=== PATIENT | female | born 1990 | race Two or more races ===

== ENCOUNTER 2016-04-21 15:52 | Inpatient (IN) | payer OTHER ==
[2016-04-21 18:26] VITALS: BMI 29.5
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
[2016-04-21] MEDS ORDERED: chlordiazePOXIDE HCL 25 MG CAPSULE PO ONE (19:29)
[2016-04-21] MEDS ORDERED: guaiFENesin/D-METHORPHAN HB 10 ML UNIT-DOSE CUPS PO PRN (19:29)
[2016-04-21] MEDS ORDERED: MAGNESIUM CITRATE 300 ML BOTTLE PO PRN (19:29)
[2016-04-21] MEDS ORDERED: chlordiazePOXIDE HCL 25 MG CAPSULE PO PRN (19:29)
[2016-04-21] MEDS ORDERED: hydrOXYzine PAMOATE 50 MG CAPSULE (FP) PO PRN (19:29)
[2016-04-21] MEDS ORDERED: MENTHOL/PHENOL 1 EACH UD MM PRN (19:29)
[2016-04-21] MEDS ORDERED: MAGNESIUM HYDROX 2400MG/30ML ORAL SUSPENSION 30 ML CUP PO PRN (19:29)
[2016-04-21] MEDS ORDERED: NICOTINE POLACRILEX 4 MG GUM BC PRN (19:29)
[2016-04-21] MEDS ORDERED: LOPERAMIDE HCL 2 MG CAPSULE PO PRN (19:29)
[2016-04-21] MEDS ORDERED: P-EPHED 60MG/TRIPROLIDI 2.5MG TABLET PO PRN (19:29)
[2016-04-21] MEDS ORDERED: MAG HYDROX/AL HYDROX/SIMETH 30 ML UNIT-DOSE CUP PO PRN (19:29)
[2016-04-21] MEDS ORDERED: diphenhydrAMINE HCL 50 MG CAPSULE PO PRN (19:29)
[2016-04-21] MEDS ORDERED: IBUPROFEN 400 MG TABLET (FP) PO PRN (19:29)
[2016-04-21] MEDS ORDERED: ACETAMINOPHEN 325 MG TABLET (FP) PO PRN (19:29)
[2016-04-21] MEDS ORDERED: ALBUTEROL SO4 6.7 GM HFA INHALER IH PRN (19:31)
[2016-04-21 22:58] LABS: URINE APPEARANCE SLCLOUDY; URINE BILIRUBIN NEGATIVE (NEGATIVE); URINE BLOOD NEGATIVE (NEGATIVE); URINE COLOR YELLOW; URINE GLUCOSE (UA) NEGATIVE (NEGATIVE); URINE KETONE NEGATIVE (NEGATIVE); URINE NITRITE NEGATIVE (NEGATIVE); URINE PROTEIN NEGATIVE (NEGATIVE); URINE UROBILINOGEN NEGATIVE E.U./dl (0.2-1.0)
[2016-04-21 22:59] LABS: URINE LEUK ESTERASE 2+ (NEGATIVE)
[2016-04-21 23:02] LABS: URINE BACTERIA RARE /hpf (NONE SEEN); URINE MUCUS FEW; URINE RBC 5 /hpf (0-3); URINE WBC 22 /hpf (3-5)
[2016-04-21] MEDS: chlordiazePOXIDE HCL 25 MG CAPSULE PO SCH (23:14)
[2016-04-21] MEDS: THIAMINE HCL 100 MG TABLET (FP) PO SCH (23:15)
[2016-04-22] MEDS: chlordiazePOXIDE HCL 25 MG CAPSULE PO SCH ×4 (05:45→22:43)
--- NOTE | 2016-04-22 07:40 | CONSULT ---
[facility] Psychiatric Consult - Data Date of interview: 04/22/16 Admission source: [facility] Identifying data: This is 26 years old female with no psychiatric hospitalization history intoxicated with: Cocaine, Cannabis, Alcohol, Nicotine Substance Abuse History: Smoking Cessation. Smoking history: Current every day smoker. Have you smoked in the past 12 months: Yes. Aproximately how many cigarettes per day: 20. Cigars Per Day: 0. Hx Chewing Tobacco Use: No. Initiated information on smoking cessation: Yes. 'Breaking Loose' booklet given : 04/21/16. - Substance & Tx. History. Hx Alcohol Use: Yes. Hx Substance Use : Yes. Substance Use Type: Alcohol, Cocaine, Marijuana. Hx Substance Use Treatment: Yes. - Substances Abused. Alcohol. Route: Oral. Frequency: Daily. Amount used: vodka 1 pint, beer 2 cans of 40oz. Age of first use: 16. Date of Last Use: 04/21/16. Cocaine. Route: Inhalation. Frequency: Daily. Amount used: 1 gram. Age of first use: 16. Date of Last Use: 04/20/16. Marijuana/Hashish. Route: Oral. Frequency: Daily. Amount used: OZ. Age of first use: 16. Date of Last Use: 04/21/16 Medical History: Asthma Psychiatric History: Denies Physical/Sexual Abuse/Trauma History: Denies Additional Comment: Observation. Detox Unit Care Protocol Mental Status Exam - Mental Status Exam Alert and Oriented to: Person Cognitive Function: Fair Patient Appearance: Unkempt Mood: Sad Affect: Flat Patient Behavior: Sedated Speech Pattern: Delayed Voice Loudness: Mildly Soft/Quiet Thought Process: Circumstantial Thought Disorder: Being Controlled Hallucinations: Denies Suicidal Ideation: Denies Homicidal Ideation: Denies Insight/Judgement: Fair Sleep: Difficulty falling asleep Appetite: Fair Muscle strength/Tone: Rigidity Gait/Station: Shuffling Additional Comments: Observation. Detox Unit Care Protocol Psychiatric Findings - Problem List ([place] 1, 2,3) (1) Alcohol dependence with uncomplicated withdrawal Current Visit: Yes Status: Acute (2) Nicotine dependence Current Visit: Yes Status: Acute Qualifiers: Nicotine product type: cigarettes Substance use status: in withdrawal Qualified Code(s): F17.213 - Nicotine dependence, cigarettes, with withdrawal (3) Cocaine dependence Current Visit: Yes Status: Acute (4) Cannabis dependence Current Visit: Yes Status: Acute - Initial Treatment Plan Initial Treatment Plan: Observation. Detox Unit Care Protocol
[2016-04-22 09:58] LABS: MEAN CELL VOLUME 96.7 fl (80-96); MEAN PLT VOLUME 9.8 fl (7.5-11.1); PLATELET COUNT 236 K/MM3 (134-434); RDW 14.6 % (11.6-15.6); WHITE BLOOD COUNT 6.6 K/mm3 (4.0-10.0)
[2016-04-22 10:06] LABS: ALBUMIN 3.5 g/dl (3.4-5.0); ALK PHOS 81 U/L (45-117); ANION GAP 9 (8-16); BILIRUBIN,TOTAL 0.4 mg/dL (0.2-1.0); CALCIUM 8.5 mg/dL (8.5-10.1); CO2 27 mmol/L (21-32); CREATININE 0.7 mg/dL (0.55-1.02); GLUCOSE,RANDOM 91 mg/dL (74-106); SGOT/AST 33 U/L (15-37); SGPT/ALT 44 U/L (12-78); TOT PROT 6.5 g/dl (6.4-8.2)
[2016-04-22] MEDS: NICOTINE 21 MG/24 HOURS TOPICAL PATCH TD SCH (10:40)
[2016-04-22] MEDS: PRENATAL VITAMINS W/ FOLIC ACID TABLET (FP) PO SCH (10:41)
[2016-04-22 11:06] LABS: HIV 1 & 2 AB NEGATIVE; HIV 1 AGp24 NEGATIVE
[2016-04-22] MEDS ORDERED: INFLUENZA VACCINE 45 MCG/0.5 ML (MDV 16-17) IM ONE (12:00)
--- NOTE | 2016-04-22 12:06 | PN ---
S CIWA - CIWA Score Nausea/Vomitin Muscle Tremors: 2 Anxiety: 3 Agitation: 3 Paroxysmal Sweats: 3 Orientation: 0-Oriented Tacttile Disturbances: 1-Very Mild Itch/Numbness Auditory Disturbances: 0-None Visual Disturbances: 0-None Headache: 0-None Present CIWA-Ar Total Score: 14 S Progress Note (SOAP) Subjective: interrupted sleep, sweats, shakes Vital Signs Temperature 98.1 F 04/22/16 10:19 Pulse Rate 78 04/22/16 10:19 Respiratory Rate 18 04/22/16 10:19 Blood Pressure 121/66 04/22/16 10:19 O2 Sat by Pulse Oximetry (%) Laboratory Tests 04/21/16 04/22/16 04/22/16 22:48 06:30 07:00 WBC 6.6 RBC 3.88 Hgb 12.4 Hct 37.6 MCV 96.7 H MCHC 33.0 RDW 14.6 Plt Count 236 MPV 9.8 Sodium Potassium Chloride Carbon Dioxide Anion Gap BUN Creatinine Creat Clearance w eGFR Random Glucose Calcium Total Bilirubin AST ALT Alkaline Phosphatase Total Protein Albumin Urine Color Yellow Urine Appearance Slcloudy Urine pH 6.0 Ur Specific [place] 1.019 Urine Protein Negative Urine Glucose (UA) Negative Urine Ketones Negative Urine Blood Negative Urine Nitrite Negative Urine Bilirubin Negative Urine Urobilinogen Negative Ur Leukocyte Esterase 2+ H Urine RBC 5 Urine WBC 22 Ur Epithelial Cells Moderate Urine Bacteria Rare Urine Mucus Few HIV 1&2 Antibody Screen Negative HIV P24 Antigen Negative 04/22/16 07:00 WBC RBC Hgb Hct MCV MCHC RDW Plt Count MPV Sodium 143 Potassium 3.8 Chloride 107 Carbon Dioxide 27 Anion Gap 9 BUN 9 Creatinine 0.7 Creat Clearance w eGFR > 60 Random Glucose 91 Calcium 8.5 Total Bilirubin 0.4 AST 33 ALT 44 Alkaline Phosphatase 81 Total Protein 6.5 Albumin 3.5 Urine Color Urine Appearance Urine pH Ur Specific [place] Urine Protein Urine Glucose (UA) Urine Ketones Urine Blood Urine Nitrite Urine Bilirubin Urine Urobilinogen Ur Leukocyte Esterase Urine RBC Urine WBC Ur Epithelial Cells Urine Bacteria Urine Mucus HIV 1&2 Antibody Screen HIV P24 Antigen pt aox3 in nad lying in bed Objective: 04/22/16 12:06 Vital Signs Temperature 98.1 F 04/22/16 10:19 Pulse Rate 78 04/22/16 10:19 Respiratory Rate 18 04/22/16 10:19 Blood Pressure 121/66 04/22/16 10:19 O2 Sat by Pulse Oximetry (%) Laboratory Tests 04/21/16 04/22/16 04/22/16 22:48 06:30 07:00 WBC 6.6 RBC 3.88 Hgb 12.4 Hct 37.6 MCV 96.7 H MCHC 33.0 RDW 14.6 Plt Count 236 MPV 9.8 Sodium Potassium Chloride Carbon Dioxide Anion Gap BUN Creatinine Creat Clearance w eGFR Random Glucose Calcium Total Bilirubin AST ALT Alkaline Phosphatase Total Protein Albumin Urine Color Yellow Urine Appearance Slcloudy Urine pH 6.0 Ur Specific [place] 1.019 Urine Protein Negative Urine Glucose (UA) Negative Urine Ketones Negative Urine Blood Negative Urine Nitrite Negative Urine Bilirubin Negative Urine Urobilinogen Negative Ur Leukocyte Esterase 2+ H Urine RBC 5 Urine WBC 22 Ur Epithelial Cells Moderate Urine Bacteria Rare Urine Mucus Few HIV 1&2 Antibody Screen Negative HIV P24 Antigen Negative 04/22/16 07:00 WBC RBC Hgb Hct MCV MCHC RDW Plt Count MPV Sodium 143 Potassium 3.8 Chloride 107 Carbon Dioxide 27 Anion Gap 9 BUN 9 Creatinine 0.7 Creat Clearance w eGFR > 60 Random Glucose 91 Calcium 8.5 Total Bilirubin 0.4 AST 33 ALT 44 Alkaline Phosphatase 81 Total Protein 6.5 Albumin 3.5 Urine Color Urine Appearance Urine pH Ur Specific [place] Urine Protein Urine Glucose (UA) Urine Ketones Urine Blood Urine Nitrite Urine Bilirubin Urine Urobilinogen Ur Leukocyte Esterase Urine RBC Urine WBC Ur Epithelial Cells Urine Bacteria Urine Mucus HIV 1&2 Antibody Screen HIV P24 Antigen 04/22/16 12:08 Assessment: 04/22/16 12:08 withdrawal sx's Plan: cont detox increease fluids
--- NOTE | 2016-04-22 12:51 | EKG ---
Test Reason : Blood Pressure : / mmHG Vent. Rate : 092 BPM Atrial Rate : 092 BPM P-R Int : 160 ms QRS Dur : 090 ms QT Int : 346 ms P-R-T Axes : 063 004 038 degrees QTc Int : 427 ms NORMAL SINUS RHYTHM MINIMAL VOLTAGE CRITERIA FOR LVH, MAY BE NORMAL VARIANT BORDERLINE ECG NO PREVIOUS ECGS AVAILABLE Confirmed by DAVID HOPKINS MD ([id number]) on 04/22/2016 12:51:37 PM Referred By: Confirmed By:DAVID HOPKINS MD
[2016-04-22] MEDS: THIAMINE HCL 100 MG TABLET (FP) PO SCH (22:43)
[2016-04-23 02:13] LABS: URINE APPEARANCE CLEAR; URINE BILIRUBIN NEGATIVE (NEGATIVE); URINE COLOR YELLOW; URINE GLUCOSE (UA) NEGATIVE (NEGATIVE); URINE KETONE NEGATIVE (NEGATIVE); URINE LEUK ESTERASE NEGATIVE (NEGATIVE); URINE NITRITE NEGATIVE (NEGATIVE); URINE PROTEIN NEGATIVE (NEGATIVE); URINE UROBILINOGEN NEGATIVE E.U./dl (0.2-1.0)
[2016-04-23 02:29] LABS: URINE BLOOD 2+ (NEGATIVE)
[2016-04-23 03:12] LABS: URINE MUCUS RARE; URINE RBC 67 /hpf (0-3); URINE WBC 10 /hpf (3-5)
[2016-04-23] MEDS: chlordiazePOXIDE HCL 25 MG CAPSULE PO SCH ×3 (05:29→17:52)
[2016-04-23] MEDS: PRENATAL VITAMINS W/ FOLIC ACID TABLET (FP) PO SCH (10:42)
[2016-04-23] MEDS: NICOTINE 21 MG/24 HOURS TOPICAL PATCH TD SCH (10:42)
--- NOTE | 2016-04-23 10:51 | PN ---
[facility] CIWA - CIWA Score Nausea/Vomitin-No Nausea/No Vomiting Muscle Tremors: 4-Moderate,w/Arms Extend Anxiety: 3 Agitation: 3 Paroxysmal Sweats: 3 Orientation: 0-Oriented Tacttile Disturbances: 0-None Auditory Disturbances: 0-None Visual Disturbances: 0-None Headache: 0-None Present CIWA-Ar Total Score: 13 S Progress Note (SOAP) Subjective: sweats shakes headache body aches interrupted sleep Objective: 04/23/16 10:45 Vital Signs Temperature 98.1 F 04/23/16 09:50 Pulse Rate 83 04/23/16 09:50 Respiratory Rate 20 04/23/16 09:50 Blood Pressure 127/72 04/23/16 09:50 O2 Sat by Pulse Oximetry (%) Laboratory Tests 04/21/16 04/22/16 04/22/16 22:48 06:30 07:00 WBC 6.6 RBC 3.88 Hgb 12.4 Hct 37.6 MCV 96.7 H MCHC 33.0 RDW 14.6 Plt Count 236 MPV 9.8 Sodium Potassium Chloride Carbon Dioxide Anion Gap BUN Creatinine Creat Clearance w eGFR Random Glucose Calcium Total Bilirubin AST ALT Alkaline Phosphatase Total Protein Albumin Urine Color Yellow Urine Appearance Slcloudy Urine pH 6.0 Ur Specific [place] 1.019 Urine Protein Negative Urine Glucose (UA) Negative Urine Ketones Negative Urine Blood Negative Urine Nitrite Negative Urine Bilirubin Negative Urine Urobilinogen Negative Ur Leukocyte Esterase 2+ H Urine RBC 5 Urine WBC 22 Ur Epithelial Cells Moderate Urine Bacteria Rare Urine Mucus Few RPR Titer HIV 1&2 Antibody Screen Negative HIV P24 Antigen Negative 04/22/16 04/22/16 04/23/16 07:00 07:00 01:48 WBC RBC Hgb Hct MCV MCHC RDW Plt Count MPV Sodium 143 Potassium 3.8 Chloride 107 Carbon Dioxide 27 Anion Gap 9 BUN 9 Creatinine 0.7 Creat Clearance w eGFR > 60 Random Glucose 91 Calcium 8.5 Total Bilirubin 0.4 AST 33 ALT 44 Alkaline Phosphatase 81 Total Protein 6.5 Albumin 3.5 Urine Color Yellow Urine Appearance Clear Urine pH 7.0 Ur Specific [place] 1.027 Urine Protein Negative Urine Glucose (UA) Negative Urine Ketones Negative Urine Blood 2+ H Urine Nitrite Negative Urine Bilirubin Negative Urine Urobilinogen Negative Ur Leukocyte Esterase Negative Urine RBC 67 Urine WBC 10 Ur Epithelial Cells Rare Urine Bacteria Urine Mucus Rare RPR Titer Nonreactive HIV 1&2 Antibody Screen HIV P24 Antigen awake/alert ambulating no acute distress Assessment: 04/23/16 10:45 withdrawal sx Plan: continue detox increase fluids ravinder sl
[2016-04-23] MEDS ORDERED: ONDANSETRON *ODT* 4 MG TABLET SL PRN (10:52)
[2016-04-23] MEDS: chlordiazePOXIDE 5 MG CAPSULE PO SCH (22:24)
[2016-04-23] MEDS: THIAMINE HCL 100 MG TABLET (FP) PO SCH (22:24)
[2016-04-24] MEDS: chlordiazePOXIDE 5 MG CAPSULE PO SCH ×3 (07:26→18:34)
[2016-04-24] MEDS: PRENATAL VITAMINS W/ FOLIC ACID TABLET (FP) PO SCH (10:57)
[2016-04-24] MEDS: NICOTINE 21 MG/24 HOURS TOPICAL PATCH TD SCH (10:57)
--- NOTE | 2016-04-24 11:21 | PN ---
[facility] Progress Note (SOAP) Subjective: interrupted sleep tired sweats Objective: 04/24/16 11:21 Vital Signs Temperature 98.2 F 04/24/16 10:00 Pulse Rate 80 04/24/16 10:00 Respiratory Rate 18 04/24/16 10:00 Blood Pressure 106/70 04/24/16 10:00 O2 Sat by Pulse Oximetry (%) awake/alert ambulating no acute distress Assessment: 04/24/16 11:21 withdrawal sx Plan: continue detox increase fluids d/c in am
[2016-04-24] MEDS ORDERED: QUEtiapine FUMARATE 50 MG TABLET PO ONE (13:30)
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
[2016-04-24] MEDS ORDERED: NICOTINE 21 MG/24 HOURS TOPICAL PATCH TD SCH (14:00)
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
[2016-04-24 14:57] VITALS: BP 111/66; PULSE 79; TEMP 98.1
--- NOTE | 2016-04-24 18:55 | DS ---
[facility] Detox Discharge Summary Admission Date: 04/21/16 Discharge Date: 04/24/16 - History Present History: Alcohol Dependence Pertinent Past History: NICOTINE ASTHMA COCAINE MARIJUANA - Physical Exam Results Vital Signs: Vital Signs Temperature 98.1 F 04/24/16 14:55 Pulse Rate 79 04/24/16 14:55 Respiratory Rate 16 04/24/16 14:55 Blood Pressure 111/66 04/24/16 14:55 O2 Sat by Pulse Oximetry (%) Pertinent Admission Physical Exam Findings: WITHDRAWAL SX Laboratory Last Values WBC 6.6 K/mm3 (4.0-10.0) 04/22/16 06:30 RBC 3.88 M/mm3 (3.60-5.2) 04/22/16 06:30 Hgb 12.4 GM/dL (10.7-15.3) 04/22/16 06:30 Hct 37.6 % (32.4-45.2) 04/22/16 06:30 MCV 96.7 fl (80-96) H 04/22/16 06:30 MCHC 33.0 g/dl (32.0-36.0) 04/22/16 06:30 RDW 14.6 % (11.6-15.6) 04/22/16 06:30 Plt Count 236 K/MM3 (134-434) 04/22/16 06:30 MPV 9.8 fl (7.5-11.1) 04/22/16 06:30 Sodium 143 mmol/L (136-145) 04/22/16 07:00 Potassium 3.8 mmol/L (3.5-5.1) 04/22/16 07:00 Chloride 107 mmol/L (98-107) 04/22/16 07:00 Carbon Dioxide 27 mmol/L (21-32) 04/22/16 07:00 Anion Gap 9 (8-16) 04/22/16 07:00 BUN 9 mg/dL (7-18) 04/22/16 07:00 Creatinine 0.7 mg/dL (0.55-1.02) 04/22/16 07:00 Creat Clearance w eGFR > 60 (>60) 04/22/16 07:00 Random Glucose 91 mg/dL (74-106) 04/22/16 07:00 Calcium 8.5 mg/dL (8.5-10.1) 04/22/16 07:00 Total Bilirubin 0.4 mg/dL (0.2-1.0) 04/22/16 07:00 AST 33 U/L (15-37) 04/22/16 07:00 ALT 44 U/L (12-78) 04/22/16 07:00 Alkaline Phosphatase 81 U/L (45-117) 04/22/16 07:00 Total Protein 6.5 g/dl (6.4-8.2) 04/22/16 07:00 Albumin 3.5 g/dl (3.4-5.0) 04/22/16 07:00 Urine Color Yellow 04/23/16 01:48 Urine Appearance Clear 04/23/16 01:48 Urine pH 7.0 (5.0-8.0) 04/23/16 01:48 Ur Specific [place] 1.027 (1.001-1.035) 04/23/16 01:48 Urine Protein Negative (NEGATIVE) 04/23/16 01:48 Urine Glucose (UA) Negative (NEGATIVE) 04/23/16 01:48 Urine Ketones Negative (NEGATIVE) 04/23/16 01:48 Urine Blood 2+ (NEGATIVE) H 04/23/16 01:48 Urine Nitrite Negative (NEGATIVE) 04/23/16 01:48 Urine Bilirubin Negative (NEGATIVE) 04/23/16 01:48 Urine Urobilinogen Negative E.U./dl (0.2-1.0) 04/23/16 01:48 Ur Leukocyte Esterase Negative (NEGATIVE) 04/23/16 01:48 Urine RBC 67 /hpf (0-3) 04/23/16 01:48 Urine WBC 10 /hpf (3-5) 04/23/16 01:48 Ur Epithelial Cells Rare /hpf (FEW) 04/23/16 01:48 Urine Bacteria Rare /hpf (NONE SEEN) 04/21/16 22:48 Urine Mucus Rare 04/23/16 01:48 RPR Titer Nonreactive (NONREACTIVE) 04/22/16 07:00 HIV 1&2 Antibody Screen Negative 04/22/16 07:00 HIV P24 Antigen Negative 04/22/16 07:00 LAB NOTED - Treatment Hospital Course: Detox Protocol Followed, Responded well - Medication Discharge Medications: Ambulatory Orders NK [No Known Home Medication] 04/21/16 - Diagnosis (1) Alcohol dependence with uncomplicated withdrawal Status: Acute (2) Asthma Status: Acute Qualifiers: Asthma severity: mild intermittent Asthma complication type: with status asthmaticus Qualified Code(s): J45.22 - Mild intermittent asthma with status asthmaticus (3) Nicotine dependence Status: Acute Qualifiers: Nicotine product type: cigarettes Substance use status: in withdrawal Qualified Code(s): F17.213 - Nicotine dependence, cigarettes, with withdrawal - AMA Did Patient Leave Against Medical Advice: No (TRANSFERRED TO [facility])
[2016-04-24] MEDS ORDERED: chlordiazePOXIDE HCL 10 MG CAPSULE PO SCH (23:00)
== END 2016-04-24 18:43 | disposition short-term general hospital (02) | DRG 774 ==
LOC: YASAS 15:52 → Y6N 19:41
PROVIDERS: ADMIT Internal Medicine Addiction Medicine; ATTEND Internal Medicine Addiction Medicine
PROC: HZ2ZZZZ Detoxification Services for Substance Abuse Treatment (ICD-10-PCS; principal; 2016-04-24)
DX: F10.230 Alcohol dependence with withdrawal, uncomplicated (principal); F14.20 Cocaine dependence, uncomplicated; F12.20 Cannabis dependence, uncomplicated; F17.213 Nicotine dependence, cigarettes, with withdrawal; J45.22 Mild intermittent asthma with status asthmaticus
CPT/HCPCS: 36415; 80053; 81003; 81015; 85027; 86593; 87389; 93005; 93010